=== PATIENT | female | born 1975 | race African-American/Black ===

== ENCOUNTER → 2018-06-24 | Outpatient (CLI) | payer OTHER ==
[2018-06-24 09:41] LABS: BASO % 1 % (0-3); EOS # 0.1 x10^3/uL (0.0-0.7); EOS % 3 % (0-3); HEMATOCRIT 40.1 % (36.0-47.0); HEMOGLOBIN 13.1 g/dL (12.0-15.5); LYMPH # 1.9 x10^3/uL (1.0-4.8); LYMPH % 37 % (24-48); MEAN CORPUSCULAR HEMOGLOBIN 29 pg (25-35); MEAN CORPUSCULAR HGB CONC 33 g/dL (31-37); MEAN CORPUSCULAR VOLUME 90 fL (79-100); MONO # 0.3 x10^3/uL (0.0-1.1); MONO % 6 % (0-9); NEUT # 2.9 x10^3uL (1.8-7.7); NEUT % 54 % (31-73); PLATELET COUNT 236 x10^3/uL (140-400); RED BLOOD COUNT 4.45 x10^6/uL (3.50-5.40); RED CELL DISTRIBUTION WIDTH 13.6 % (11.5-14.5); WHITE BLOOD COUNT 5.3 x10^3/uL (4.0-11.0)
[2018-06-24 10:07] LABS: ALBUMIN 4.1 g/dL (3.4-5.0); CALCIUM 8.7 mg/dL (8.5-10.1); CHOLESTEROL/HDL RATIO 2.5; CREATININE 0.7 mg/dL (0.6-1.0); GFR 111.6; POTASSIUM 4.1 mmol/L (3.5-5.1); TOTAL BILIRUBIN 0.5 mg/dL (0.2-1.0); TOTAL PROTEIN 8.1 g/dL (6.4-8.2)
[2018-06-24 10:20] LABS: FREE T4 0.89 ng/dL (0.76-1.46); THYROID STIM HORMONE (TSH) 6.123 uIU/mL (0.358-3.74)
== END | disposition home or self-care (01) ==
LOC: LAB 08:50
PROVIDERS: ATTEND Physician Assistant Medical
DX: Z13.220 Encounter for screening for lipoid disorders (principal); Z13.1 Encounter for screening for diabetes mellitus; E03.9 Hypothyroidism, unspecified
CPT/HCPCS: 36415; 80053; 80061; 84439; 84443; 85025

== ENCOUNTER 2018-10-26 04:59 | Emergency (ER) | payer MEDICAID, OTHER ==
[~2018-10-26] VITALS: Ht 152.4 cm; Wt 68.0 kg
[2018-10-26 05:00] VITALS: BP 114/64
--- NOTE | 2018-10-26 05:44 | PHYS DOC ---
Adult General Chief Complaint Chief Complaint: HAND PROBLEM HPI HPI Patient is a 43 year old female presents with chief complaint of wrist pain. 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 She did not fall on it she was concerned because she was having trouble making a fis t. No numbness pain is moderate worse with trying to make a fist Allergies Allergies Allergies Coded Allergies Type Severity Reaction Last Updated Verified No Known Drug Allergies 10/26/18 No Physical Exam Physical Exam Constitutional: Well developed, well nourished, no acute distress, non-toxic appearance. [] HENT: Normocephalic, atraumatic, bilateral external ears normal, oropharynx moist, no oral exudates, nose normal. [] Eyes: PERRLA, EOMI, conjunctiva normal, no discharge. [] Neck: Normal range of motion, no tenderness, supple, no stridor. [] CPulmonary: Normal respiratory effort no increased work of breathing no obvious chest wall trauma Skin: Warm, dry, no erythema, no rash. [] Back: No tenderness, no CVA tenderness. 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 [] Psychologic: Affect normal, judgement normal, mood normal. [] EKG EKG [] Radiology/Procedures Radiology/Procedures [] Course & Med Decision Making Course & Med Decision Making Pertinent Labs and Imaging studies reviewed. (See chart for details) []X-ray negative by my read likely wrist pain patient was given a Velcro wrist splint and will be discharged in stable condition Dragon Disclaimer Dragon Disclaimer This electronic medical record was generated, in whole or in part, using a voice recognition dictation system. Departure Departure Impression: Primary Impression: Left wrist sprain Disposition: 01 HOME, SELF-CARE Condition: STABLE Patient Instructions: Wrist Sprain with [facility] LORELEI ROLON MD Oct 26, 2018 05:44
--- NOTE | 2018-10-26 07:43 | RAD ---
Left wrist, 3 views, 10/26/2018: HISTORY: Pain No fracture or dislocation is identified. There is mild subcutaneous edema. IMPRESSION: No acute bony abnormality is detected. Electronically signed by: George Anthony MD (10/26/2018 7:39 AM) [facility]
== END 2018-10-26 05:50 | disposition home or self-care (01) ==
LOC: ER 04:59
DX: S63.592A Other specified sprain of left wrist, initial encounter (principal); X50.1XXA Overexertion from prolonged static or awkward postures, initial encounter; Y93.89 Activity, other specified; Y92.89 Other specified places as the place of occurrence of the external cause; Y99.0 Civilian activity done for income or pay
CPT/HCPCS: 29125; 73110; 99284

== ENCOUNTER 2018-11-29 06:13 | Day surgery (SDC) | payer MEDICAID, OTHER ==
--- NOTE | 2018-11-28 15:50 | PDOC1 ---
History and Physical Date of Admission Date of Admission 11/29/2018 Identification/Chief Complaint Chief Complaint Bilateral hand tingling and numbness Source Source: Chart review, Patient History of Present Illness History of Present Illness 43-year-old right-handed woman with bilateral hand pain and paresthesias. 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 She recently had an EMG done with Dr. Andino which shows bilateral carpal tunnel syndrome. She is here today for elective bilateral carpal tunnel release. Her is going to take care of her at home. Past Medical History Past Medical History Hypothyroid Endocrine: Hypothyroidism Past Surgical History Past Surgical History: Family History Family History: No Significant Social History Smoke: No Current Medications Current Medications Current Medications Ondansetron HCl (Zofran) 4 mg PRN Q6HRS PRN IV NAUSEA/VOMITING; Start 11/29/18 at 07:00; Stop 11/30/18 at 06:59 Fentanyl Citrate (Fentanyl 2ml Vial) 25 mcg PRN Q5MIN PRN IV MILD PAIN 1-3; Start 11/29/18 at 07:00; Stop 11/30/18 at 06:59 Fentanyl Citrate (Fentanyl 2ml Vial) 50 mcg PRN Q5MIN PRN IV MODERATE TO SEVERE PAIN; Start 11/29/18 at 07:00; Stop 11/30/18 at 06:59 Morphine Sulfate (Morphine Sulfate) 1 mg PRN Q10MIN PRN IV SEVERE PAIN 7-10; Start 11/29/18 at 07:00; Stop 11/30/18 at 06:59 Ringer's Solution 1,000 ml @ 30 mls/hr Q24H IV ; Start 11/29/18 at 07:00; Stop 11/29/18 at 18:59 Lidocaine HCl (Xylocaine-Mpf 1% 2ml Vial) 2 ml PRN 1X PRN ID IV START; Start 11/29/18 at 07:00; Stop 11/30/18 at 06:59 Hydromorphone HCl (Dilaudid) 0.5 mg PRN Q10MIN PRN IV SEV PAIN, Second choice; Start 11/29/18 at 07:00; Stop 11/30/18 at 06:59 Prochlorperazine Edisylate (Compazine) 5 mg PACU PRN PRN IV NAUSEA, MRX1; Start 11/29/18 at 07:00; Stop 11/30/18 at 06:59 Allergies Allergies: Coded Allergies: iodine (Verified Allergy, Unknown, 10/26/18) ROS General: No: Chills, Night Sweats Eyes: No Blurry vision, No Decreased vision, No Double vision HEENT: No: Heacaches Hematological and Lymphatic: No: Bleeding Problems, Blood Clots Respiratory: No: Cough, Shortness of breath, SOB with excertion Cardiovascular: No Chest Pain, No Palpitations, No Edema Genitourinary: No Dysuria, No Hematuria Neurological: No Headaches Physical Exam General: Alert, Cooperative HEENT: Atraumatic Lungs: Normal air movement Heart: RRR Extremities: Other (The overall alignment of the LEFT hand is normal. There are no masses. Minimal tenderness except over the median nerve. Light touch sensation is decreased in the thumb index and long finger. 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 There is no thenar atrophy. Pulses intact. Phalen's positive. Tinel's positive. Tinel's at the elbow is negative. Negative Spurling's. Wrist: The overall alignment of the LEFT hand is normal. There are no masses. Minimal tenderness except over the median nerve. Light touch sensation is decreased in the thumb index and long finger. 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 There is no thenar atrophy. Pulses intact. Phalen's positive. Tinel's positive. Tinel's at the elbow is negative. Negative Spurling's.) Neuro: Normal speech, Other Psych/Mental Status: Mental status NL, Mood NL Labs Labs EMG on 11/02/18 showed: 1. There is a severe right carpal tunnel syndrome (median nerve entrapment at wrist) with sensory and motor axonal loss. 2. There is a moderate left carpal tunnel syndrome (median nerve entrapment at wrist) 3. There is no evidence of cubital tunnel syndrome on either side. 4. There is no evidence of polyneuropathy affecting the studied extremities. 5. There is no sign of cervical radiculopathy on either side. 6. There is no sign of brachial plexopathy on either side. 7. There is no evidence of neurogenic thoracic outlet syndrome on either side. Images Images [facility] [address] [place], [place] [id number] IMAGING REPORT Signed PATIENT: BRIDGETT PANDA ACCOUNT: [id number] : 1975 LOCATION: ER AGE: 43 SEX: F EXAM STATUS: DEP ER ORD. PHYSICIAN: LORELEI ROLON MD REASON: trauma, LT WRIST PAIN DUE TO PUSHING PROCEDURE: WRIST 3V LEFT Left wrist, 3 views, 10/26/2018: HISTORY: Pain No fracture or dislocation is identified. There is mild subcutaneous edema. IMPRESSION: No acute bony abnormality is detected. Electronically signed by: George Anthony MD (10/26/2018 7:39 AM) [facility]ENTERBure[facility] SkateboardsBR[facility] DICTATED and SIGNED BY: GEORGE ANTHONY MD DATE: 10/26/18738 Report reviewed, images independently reviewed left wrist 10/26/18, no acute find ings [facility] [address] [place] [address] IMAGING REPORT Signed PATIENT: BRIDGETT PANDA ACCOUNT: [id number] : 1975 LOCATION: ER AGE: 43 SEX: F EXAM STATUS: DEP ER ORD. PHYSICIAN: LORELEI ROLON MD REASON: trauma, LT WRIST PAIN DUE TO PUSHING PROCEDURE: WRIST 3V LEFT Left wrist, 3 views, 10/26/2018: HISTORY: Pain No fracture or dislocation is identified. There is mild subcutaneous edema. IMPRESSION: No acute bony abnormality is detected. Electronically signed by: George Anthony MD (10/26/2018 7:39 AM) [employer] DICTATED and SIGNED BY: GEORGE ANTHONY MD DATE: 10/26/18738. VTE Prophylaxis Ordered VTE Prophylaxis Devices: Yes VTE Pharmacological Prophylaxi: Yes Assessment/Plan Assessment/Plan After speaking with patient, we decided to move forward with bilateral carpal tunnel release under local anesthesia with sedation. 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 She has spoken with her and understands the post operative expectations for bilateral carpal tunnel release. She agrees with this plan is here for bilateral carpal tunnel release today under local MAC anesthesia HAYLEE SMITH MD Nov 28, 2018 15:50
[~2018-11-29 06:13] MED LIST: BUPIVACAINE MPF 0.25% 30 ML VIAL. ONE; BUPIVACAINE-EPI 0.25%-1:200000 MPF 30 ML VIAL. ONE
[2018-11-29] MEDS ORDERED: LEVO137T3 PO (06:23)
[2018-11-29] MEDS ORDERED: MORPHINE SULFATE 2 MG/ML VIAL. IV PRN (07:00)
[2018-11-29] MEDS ORDERED: HYDROmorphone 2 MG/ML VIAL IV PRN (07:00)
[2018-11-29] MEDS ORDERED: LIDOCAINE 1% PF 2 ML VIAL. ID PRN (07:00)
[2018-11-29] MEDS ORDERED: ceFAZolin 2GM PREMIX 2 GM/50 ML BAG IV ONE (07:00)
[2018-11-29] MEDS ORDERED: fentaNYL PF VIAL 100 MCG/2 ML VIAL IV PRN ×2 (07:00)
[2018-11-29] MEDS ORDERED: PROCHLORPERAZINE 10 MG/2 ML VIAL. IV PRN (07:00)
[2018-11-29] MEDS ORDERED: IV RINGERS,LACTATED 1000ML 1,000 ML IV SCH (07:00)
[2018-11-29] MEDS ORDERED: ONDANSETRON PF 4 MG/2 ML VIAL. IV PRN (07:00)
[2018-11-29] MEDS ORDERED: MIDAZOLAM HCL/PF 2 MG/2 ML VIAL. ONE (07:01)
[2018-11-29] MEDS ORDERED: KETAMINE HCL IN NACL, ISO-OSM 50 MG/5 ML SYRINGE ONE (07:01)
[2018-11-29] MEDS ORDERED: PROTAMINE 50 MG/5 ML VIAL. IV ONE (07:04)
[2018-11-29] MEDS ORDERED: PROPOFOL 0 ML IV ONE (07:04)
[2018-11-29] MEDS ORDERED: PROPOFOL 50 ML IV ONE (07:04)
[2018-11-29] MEDS ORDERED: 0.9 % SODIUM CHLORIDE 20 ML VIAL. IJ ONE (07:39)
[2018-11-29] MEDS ORDERED: KETOROLAC 30 MG/ML INJ FOR OR. INJ ONE (07:39)
[2018-11-29] MEDS ORDERED: LIDOCAINE 2% PF 5 ML VIAL. ONE (07:39)
--- NOTE | 2018-11-29 08:15 | PDOC4 ---
Operative Note Operative Note DATE: November 29, 2018 PREOPERATIVE DIAGNOSIS Carpal tunnel syndrome, right upper limb G56.01, and carpal tunnel syndrome left upper limb G56.02: POSTOPERATIVE DIAGNOSIS: Carpal tunnel syndrome, right upper limb G56.01, and carpal tunnel syndrome left upper limb G56.02 PROCEDURES PERFORMED: bilateral wrist, open carpal tunnel release (neuroplasty of the median nerve at the carpal tunnel, CPT 16567-92 SURGEON: Haylee Callaway MD DRY ROOM ATTENDANT: ANESTHESIA: Regional intravenous block (Kildeer Block) ESTIMATED BLOOD LOSS: 10 mL SPECIMENS: none DRAINS: none COMPLICATIONS: none TOURNIQUET: 275 mm Hg, left arm 24 minutes, right arm 20 minutes INDICATIONS FOR PROCEDURE: The patient is a 43-year-old with bilateral hand pain and numbness. EMG confirms carpal tunnel syndrome. The patient and I discussed carpal tunnel release surgery along with the potential risks of infection, neurovascular injury, bleeding, persistent or recurrent carpal tunnel syndrome, wound healing problems, or other surgical or anesthetic complications. We discussed the risks and benefits of bilateral carpal tunnel release at the same surgical encounter and the patient adamantly wanted bilateral surgery at the same setting. All of the patient�s questions about surgery were answered and she desired to proceed. Written consent was obtained. DESCRIPTION OF OPERATION: The patient was identified in the preoperative holding area. Both hands were marked by me. The patient was taken to the operating room and positioned supine on the operating table with the arms on arm boards. A tourniquet was placed on the upper arm bilaterally. Preoperative antibiotics were given intravenously. The left arm was extended on an arm board. A timeout procedure was performed. A Madison block was performed by the anesthesia team, and the tourniquet was inflated as part of the anesthetic. The left upper limb was prepared in sterile fashion with ChloraPrep solution and sterile drapes were applied. Forceps were used to pinch the skin at the wrist, to check the adequacy of the block. A curvilinear incision was made with a 15 blade scalpel, 2mm ulnar to the thenar crease, using landmarks including the thenar crease, Hicks�s cardinal line, the ulnar border of the fingernail of the ring finger, the wrist flexion crease, and the palmaris longus tendon. Care was made not to extend this incision beyond Hicks�s cardinal line, so as to avoid arterial injury. Loupe magnification was used throughout to prevent neurovascular injury. Sharp dissection was used through the subcutaneous tissues, and the palmaris longus tendon was retracted toward the thumb. Bipolar electrocautery was used for hemostasis. The transverse carpal ligament was identified and was divided under direct vision proximally and distally. Scissor dissection was used proximal to the wrist flexion crease to complete the proximal release of the transverse carpal ligament with the skin elevated away from the dissection. Digital palpation was used proximally and distally, ensuring a complete release. A gentle scissor neuroplasty was now performed along the ulnar aspect of the median nerve, releasing dense adhesions and dense synovium. The left median ne rve was thinned. Care was made not to injure the motor branch on the radial aspect. Copious saline irrigation was used. Bipolar electrocautery was used for hemostasis. The skin edges were injected with 5 mL of 0.25% bupivacaine with epinephrine. The skin edges were reapproximated with 3-0 Prolene horizontal mattress sutures. Xeroform and a sterile dressing were applied. The left arm tourniquet was released. There were no apparent complications. Needle and sponge counts were correct. The left arm was removed from the arm board. An arm board was placed under the right arm. A right arm Kildeer block was performed by the anesthesia team, and the tourniquet was inflated as part of the anesthetic. The right upper limb was prepared in sterile fashion with ChloraPrep solution and sterile drapes were applied. Forceps were used to pinch the skin at the wrist, to check the adequacy of the block. A curvilinear incision was made with a 15 blade scalpel, 2mm ulnar to the thenar crease, using landmarks including the thenar crease, Hicks�s cardinal line, the ulnar border of the fingernail of the ring finger, the wrist flexion crease, and the palmaris longus tendon. Care was made not to extend this incision beyond Hicks�s cardinal line, so as to avoid arterial injury. The skin edges were injected with 5 mL of 0.25% bupivacaine with epinephrine due to pain during the incision. Loupe magnification (3.5x extended field) was used throughout to prevent neurovascular injury. Sharp dissection was used through the subcutaneous tissues, and the palmaris longus tendon was retracted toward the thumb. The transverse carpal ligament was identified and was divided under direct vision proximally and distally. The right side transverse carpal ligament was thicker than the left. Scissor dissection was used proximal to the wrist flexion crease to complete the proximal release of the transverse carpal ligament, with the skin elevated away from the dissection. Digital palpation was used proximally and distally, ensuring a complete release. A gentle scissor neuroplasty was now performed along the ulnar aspect of the median nerve, releasing dense adhesions and dense synovium. The right medial nerve was thinned. Care was made not to injure the motor branch on the radial aspect. Copious saline irrigation was used. Bipolar electrocautery was used for hemostasis. The skin edges were reapproximated with 3-0 Prolene horizontal m attress sutures. Xeroform and a sterile dressing were applied. The right arm tourniquet was released. There were no apparent complications. Needle and sponge counts were correct. The patient returned to the recovery room in stable condition. HAYLEE CALLAWAY MD Nov 29, 2018 08:15
[2018-11-29] MEDS ORDERED: HYDR-2765 PO (09:06)
[2018-11-29 09:30] VITALS: BP 110/65
[2018-11-29] MEDS ORDERED: HYDROcodone/APAP 7.5/325MG 1 TAB TABLET PO PRN ×2 (09:30)
== END 2018-11-29 09:55 | disposition home or self-care (01) ==
LOC: SURG 06:13
PROVIDERS: ATTEND Orthopaedic Surgery
DX: G56.03 Carpal tunnel syndrome, bilateral upper limbs (principal); E03.9 Hypothyroidism, unspecified; Z98.890 Other specified postprocedural states; Z91.041 Radiographic dye allergy status
CPT/HCPCS: 64721; 81025; J0696; J1885; J2001; J2250; J2704; J3490